=== PATIENT | female | born 1975 | race African-American/Black ===

== ENCOUNTER 2023-12-05 10:07 | Inpatient (IN) | payer OTHER ==
[2023-12-05 10:34] VITALS: BMI 22.5
[2023-12-05] MEDS ORDERED: P-EPHED 60MG/TRIPROLIDI 2.5MG TABLET PO PRN (11:28)
[2023-12-05] MEDS ORDERED: IBUPROFEN 400 MG TABLET (FP) PO PRN (11:28)
[2023-12-05] MEDS ORDERED: MAGNESIUM HYDROX 2400MG/30ML ORAL SUSPENSION 30 ML CUP PO PRN (11:28)
[2023-12-05] MEDS ORDERED: BENZOCAINE/MENTHOL (CHLORASEPTIC ) LOZENGE MM PRN (11:28)
[2023-12-05] MEDS ORDERED: NICOTINE POLACRILEX 2 MG LOZENGE BC PRN (11:28)
[2023-12-05] MEDS ORDERED: DICYCLOMINE HCL 10 MG CAPSULE PO PRN (11:28)
[2023-12-05] MEDS ORDERED: BISMUTH SUBSALICYLATE 262 MG/15 ML BTL PO PRN (11:28)
[2023-12-05] MEDS ORDERED: IBUPROFEN 600 MG TABLET (FP) PO PRN (11:28)
[2023-12-05] MEDS ORDERED: guaiFENesin 600 MG TABLET.ER (FP) PO PRN (11:28)
[2023-12-05] MEDS ORDERED: BENZONATATE 200 MG CAPSULE PO PRN (11:28)
[2023-12-05] MEDS ORDERED: NALOXONE HCL 0.4 MG/ML VIAL IM PRN (11:28)
[2023-12-05] MEDS ORDERED: NALOXONE HCL (KLOXXADO) 8 MG SPRAY NS PRN (11:28)
[2023-12-05] MEDS ORDERED: ONDANSETRON *ODT* 4 MG TABLET SL PRN (11:28)
[2023-12-05] MEDS ORDERED: hydrOXYzine PAMOATE 25 MG CAPSULE (FP) PO PRN (11:28)
[2023-12-05] MEDS ORDERED: POLYETHYLENE GLYCOL (HEALTHYLAX) 3350 17 GM PACKET PO PRN (11:28)
[2023-12-05] MEDS ORDERED: LOPERAMIDE HCL 2 MG CAPSULE PO PRN (11:28)
[2023-12-05] MEDS ORDERED: ACETAMINOPHEN 325 MG TABLET (FP) PO PRN (11:28)
[2023-12-05] MEDS ORDERED: MAG HYDROX/AL HYDROX/SIMETH 30 ML UNIT-DOSE CUP PO PRN (11:28)
[2023-12-05] MEDS ORDERED: ALBUTEROL SO4 HFA INHALER IH PRN (11:30)
[2023-12-05] MEDS ORDERED: levETIRAcetam 500 MG TABLET (FP) PO ONE (12:07)
[2023-12-05] MEDS: levETIRAcetam 500 MG TABLET (FP) PO SCH ×2 (12:12→22:31)
[2023-12-05] MEDS: THIAMINE HCL 100 MG TABLET (FP) PO SCH (22:32)
[2023-12-05] MEDS: MELATONIN 5 MG TABLETS PO SCH (22:32)
[2023-12-06] MEDS ORDERED: methaDONE HCL 10 MG TABLET (FOR DETOX USE ONLY) PO ONE ×2 (05:51→10:00)
[2023-12-06] MEDS ORDERED: TRIMETHOBENZAMIDE HCL 200MG/2ML INJ IM ONE ×2 (08:00→19:10)
[2023-12-06] MEDS: levETIRAcetam 500 MG TABLET (FP) PO SCH ×2 (09:45→22:51)
[2023-12-06] MEDS: cloNIDine HCL 0.1 MG TABLET PO PRN ×4 (09:45→22:54)
[2023-12-06] MEDS: PRENATAL VITAMINS W/ FOLIC ACID TABLET (FP) PO SCH (09:45)
[2023-12-06 11:16] LABS: POTASSIUM 4.1 mmol/L (3.5-5.1)
[2023-12-06 11:35] LABS: CALCIUM 8.8 mg/dL (8.5-10.1)
[2023-12-06 11:36] LABS: BLOOD UREA NITROGEN 10.8 mg/dL (7-18); CREATININE 0.6 mg/dL (0.55-1.3)
[2023-12-06 11:38] LABS: BILIRUBIN,TOTAL 0.3 mg/dL (0.2-1); TOT PROT 7.9 g/dl (6.4-8.2)
[2023-12-06] MEDS ORDERED: ONDANSETRON *ODT* 4 MG TABLET SL PRN (12:27)
[2023-12-06 12:53] LABS: HEMATOCRIT 38.4 % (32.4-45.2); HEMOGLOBIN 12.3 GM/dL (10.7-15.3); MCH 22.9 pg (25.7-33.7); MCHC 32.1 g/dl (32.0-36.0); MEAN CELL VOLUME 71.2 fl (80-96); MEAN PLT VOLUME 8.2 fl (7.5-11.1); PLATELET COUNT 278 10^3/uL (134-434); RBC 5.39 M/mm3 (3.60-5.2); RDW 19.7 % (11.6-15.6); WHITE BLOOD COUNT 5.3 K/mm3 (4.0-10.0)
[2023-12-06] MEDS: METHOCARBAMOL 500 MG TABLET PO PRN (19:05)
[2023-12-06] MEDS: THIAMINE HCL 100 MG TABLET (FP) PO SCH (22:50)
[2023-12-06] MEDS: MELATONIN 5 MG TABLETS PO SCH (22:50)
[2023-12-06] MEDS ORDERED: cloNIDine HCL 0.1 MG TABLET PO ONE (23:51)
[2023-12-07] MEDS ORDERED: ONDANSETRON *ODT* 4 MG TABLET SL PRN (00:02)
[2023-12-07] MEDS: cloNIDine HCL 0.1 MG TABLET PO PRN (05:59)
[2023-12-07] MEDS: PRENATAL VITAMINS W/ FOLIC ACID TABLET (FP) PO SCH (10:46)
[2023-12-07] MEDS: levETIRAcetam 500 MG TABLET (FP) PO SCH ×2 (10:46→21:14)
[2023-12-07] MEDS: METHOCARBAMOL 500 MG TABLET PO PRN (11:10)
[2023-12-07] MEDS ORDERED: QUEtiapine FUMARATE 200 MG TABLET PO SCH ×2 (12:45→22:00)
[2023-12-07] MEDS ORDERED: QUEtiapine FUMARATE 200 MG TABLET PO ONE (13:00)
[2023-12-07 15:10] VITALS: BP 70/44; PULSE 101; RESP 16; TEMP 98.1
[2023-12-07] MEDS: THIAMINE HCL 100 MG TABLET (FP) PO SCH (21:14)
[2023-12-08] MEDS ORDERED: methaDONE HCL 10 MG TABLET (FOR DETOX USE ONLY) PO ONE (10:00)
[2023-12-10] MEDS ORDERED: methaDONE HCL 10 MG TABLET (FOR DETOX USE ONLY) PO ONE (10:00)
== END 2023-12-07 22:00 | disposition short-term general hospital (02) | DRG 773 ==
LOC: YASAS 10:07 → Y3N 11:30
PROVIDERS: ADMIT Allergy & Immunology; ATTEND Allergy & Immunology
PROC: HZ2ZZZZ Detoxification Services for Substance Abuse Treatment (ICD-10-PCS; principal; 2023-12-05)
DX: F11.23 Opioid dependence with withdrawal (principal); F14.20 Cocaine dependence, uncomplicated; F17.210 Nicotine dependence, cigarettes, uncomplicated; F25.1 Schizoaffective disorder, depressive type; F19.280 Other psychoactive substance dependence with psychoactive substance-induced anxiety disorder; F19.282 Other psychoactive substance dependence with psychoactive substance-induced sleep disorder; I10 Essential (primary) hypertension; I95.9 Hypotension, unspecified; G40.909 Epilepsy, unspecified, not intractable, without status epilepticus; Z85.830 Personal history of malignant neoplasm of bone; Z89.022 Acquired absence of left finger(s); Z89.021 Acquired absence of right finger(s); Z56.0 Unemployment, unspecified; Z88.0 Allergy status to penicillin
CPT/HCPCS: 36415; 80053; 81025; 85027; 86780; 87635; 87811; 93005; 93010; Q0162

== ENCOUNTER 2023-12-07 14:57 | Inpatient (IN) | payer OTHER ==
[2023-12-07 15:48] VITALS: BMI 22.4
[2023-12-07] MEDS ORDERED: SODIUM CHLORIDE 0.9% 500 ML INFUS.BAG IV ONE ×3 (15:56→18:16)
[2023-12-07 16:11] LABS: EOS % 2.7 % (0-4.5); HEMATOCRIT 36.1 % (32.4-45.2); HEMOGLOBIN 11.8 GM/dL (10.7-15.3); MCH 23.2 pg (25.7-33.7); MCHC 32.7 g/dl (32.0-36.0); MEAN CELL VOLUME 70.9 fl (80-96); MEAN PLT VOLUME 7.4 fl (7.5-11.1); MONO % 14.2 % (3.8-10.2); NEUT % 32.1 % (42.8-82.8); PLATELET COUNT 279 10^3/uL (134-434); RDW 19.3 % (11.6-15.6); WHITE BLOOD COUNT 4.2 K/mm3 (4.0-10.0)
[2023-12-07 16:12] LABS: VENOUS BASE EXCESS 0.5 mmol/L (-2-2); VENOUS O2 SATURATION 49.7 % (70-80); VENOUS PCO2 54.3 mmHg (38-52); VENOUS PH 7.324 (7.310-7.410)
[2023-12-07 16:19] LABS: INR 1.07 (0.83-1.09); PROTHROMBIN TIME (PATIENT) 12.4 SEC (9.7-13.0)
[2023-12-07 16:22] LABS: ACTIVATED PTT 29.6 SECONDS (25.2-36.5)
[2023-12-07 16:23] LABS: POTASSIUM 4.2 mmol/L (3.5-5.1)
[2023-12-07] MEDS ORDERED: NALOXONE HCL 0.4 MG/ML VIAL ONE (16:23)
[2023-12-07 16:25] LABS: BLOOD UREA NITROGEN 25.9 mg/dL (7-18); CALCIUM 8.8 mg/dL (8.5-10.1)
[2023-12-07 16:26] LABS: MAGNESIUM 2.4 mg/dL (1.8-2.4)
[2023-12-07] MEDS ORDERED: NALOXONE HCL 0.4 MG/ML VIAL IVPUSH ONE ×2 (16:27→20:13)
[2023-12-07 16:29] LABS: CREATININE 1.7 mg/dL (0.55-1.3); PHOSPHOROUS 6.4 mg/dL (2.5-4.9)
[2023-12-07 16:30] LABS: TOT PROT 7.7 g/dl (6.4-8.2)
[2023-12-07 16:31] LABS: BILIRUBIN,TOTAL 0.3 mg/dL (0.2-1)
[2023-12-07 17:12] LABS: LACTIC ACID 2.6 mmol/L (0.4-2.0)
[2023-12-07] MEDS ORDERED: LACTATED RINGERS SOLUTION 1,000 ML/1,000 ML INFUS.BAG IV SCH ×2 (22:00)
[2023-12-07] MEDS ORDERED: cloNIDine HCL 0.1 MG TABLET PO PRN (22:09)
[2023-12-07] MEDS: HEPARIN NA (PORCINE) 5,000 UNITS/ML 1ML VIAL SQ SCH (23:16)
[2023-12-07 23:19] LABS: URINE APPEARANCE CLEAR; URINE BILIRUBIN NEGATIVE (NEGATIVE); URINE COLOR YELLOW; URINE GLUCOSE (UA) NEGATIVE (NEGATIVE); URINE KETONE NEGATIVE (NEGATIVE); URINE LEUK ESTERASE NEGATIVE (NEGATIVE); URINE NITRITE NEGATIVE (NEGATIVE); URINE PROTEIN NEGATIVE (NEGATIVE); URINE UROBILINOGEN 0.2 mg/dL (0.2-1.0)
[2023-12-07 23:22] LABS: OPIATES, URI NEGATIVE (NEGATIVE); PHENCYCLIDINE,URINE NEGATIVE (NEGATIVE); URINE BENZODIAZEPINES NEGATIVE (NEGATIVE)
[2023-12-07 23:24] LABS: URINE BARBITURATES NEGATIVE (NEGATIVE)
[2023-12-07 23:33] LABS: COCAINE, UR POSITIVE (NEGATIVE); METHADONE, UR POSITIVE (NEGATIVE); URINE AMPHETAMINES NEGATIVE (NEGATIVE)
[2023-12-07] MEDS ORDERED: QUEtiapine FUMARATE 50 MG TABLET PO ONE ×2 (23:51)
[2023-12-07] MEDS ORDERED: QUEtiapine FUMARATE 100 MG TABLET (FP) PO ONE (23:51)
[2023-12-07] MEDS ORDERED: QUEtiapine FUMARATE 100 MG TABLET (FP) ONE (23:56)
[2023-12-08] MEDS ORDERED: ALBUTEROL SO4 HFA INHALER IH PRN (05:58)
[2023-12-08] MEDS: HEPARIN NA (PORCINE) 5,000 UNITS/ML 1ML VIAL SQ SCH ×2 (06:49→14:18)
[2023-12-08 09:51] VITALS: TEMP 98.6
[2023-12-08] MEDS ORDERED: QUEtiapine FUMARATE 200 MG TABLET PO SCH (10:00)
[2023-12-08] MEDS ORDERED: levETIRAcetam 500 MG TABLET (FP) PO SCH (10:00)
[2023-12-08] MEDS ORDERED: QUEtiapine FUMARATE 100 MG TABLET (FP) ONE (10:19)
[2023-12-08] MEDS ORDERED: cloNIDine HCL 0.1 MG TABLET PO PRN (10:25)
[2023-12-08] MEDS ORDERED: QUEtiapine FUMARATE 100 MG TABLET (FP) PO SCH ×2 (10:51→11:08)
[2023-12-08] MEDS ORDERED: methaDONE HCL 10 MG TABLET ONE (11:30)
[2023-12-08 13:26] VITALS: PULSE 93; RESP 16
[2023-12-08] MEDS ORDERED: SODIUM CHLORIDE 250 ML IV STA ×2 (13:33→13:59)
[2023-12-08] MEDS ORDERED: HEPARIN NA (PORCINE) 5,000 UNITS/ML 1ML VIAL ONE (14:14)
[2023-12-09] MEDS ORDERED: methaDONE HCL 10 MG TABLET (FOR DETOX USE ONLY) PO ONE (10:00)
[2023-12-09] MEDS ORDERED: methaDONE HCL 10 MG TABLET PO ONE (10:00)
[2023-12-11] MEDS ORDERED: methaDONE HCL 10 MG TABLET (FOR DETOX USE ONLY) PO ONE (10:00)
[2023-12-11] MEDS ORDERED: methaDONE HCL 10 MG TABLET PO ONE (10:00)
[2023-12-14 23:15] VITALS: BP 98/56
== END 2023-12-08 15:30 | disposition left against medical advice (07) | DRG 207 ==
LOC: JER 14:57 → JERBED 16:59 → OBSVTOIN 19:49
PROVIDERS: ADMIT Internal Medicine; ATTEND Internal Medicine
DX: I95.9 Hypotension, unspecified (principal); C41.9 Malignant neoplasm of bone and articular cartilage, unspecified; E87.20 Acidosis, unspecified; N17.9 Acute kidney failure, unspecified; R64 Cachexia; Z68.22 Body mass index [BMI] 22.0-22.9, adult; F11.90 Opioid use, unspecified, uncomplicated; E03.9 Hypothyroidism, unspecified; Z59.00 Homelessness unspecified
CPT/HCPCS: 0241U-QW; 36415; 70450-TC; 71045-TC-FY; 80053; 80177; 80307; 81003; 82550; 82553; 82803; 82962; 83605; 83735; 83880; 84100; 84436; 84443; 84484; 85025; 85610; 85730; 86850; 86900; 86901; 87040; 87086; 93005; 93010; 99285-25; G0378; J1644

== ENCOUNTER 2023-12-08 16:40 | Inpatient (IN) | payer OTHER ==
[2023-12-08 18:03] VITALS: BMI 21.6
[2023-12-08] MEDS ORDERED: ALBUTEROL SO4 HFA INHALER IH PRN (23:22)
[2023-12-08] MEDS ORDERED: BENZOCAINE/MENTHOL (CHLORASEPTIC ) LOZENGE MM PRN (23:23)
[2023-12-08] MEDS ORDERED: NICOTINE POLACRILEX 2 MG LOZENGE BC PRN (23:23)
[2023-12-08] MEDS ORDERED: DICYCLOMINE HCL 10 MG CAPSULE PO PRN (23:23)
[2023-12-08] MEDS ORDERED: ACETAMINOPHEN 325 MG TABLET (FP) PO PRN (23:23)
[2023-12-08] MEDS ORDERED: BISMUTH SUBSALICYLATE 524 MG/30 ML PO PRN (23:23)
[2023-12-08] MEDS ORDERED: BENZONATATE 200 MG CAPSULE PO PRN (23:23)
[2023-12-08] MEDS ORDERED: POLYETHYLENE GLYCOL (HEALTHYLAX) 3350 17 GM PACKET PO PRN (23:23)
[2023-12-08] MEDS ORDERED: P-EPHED 60MG/TRIPROLIDI 2.5MG TABLET PO PRN (23:23)
[2023-12-08] MEDS ORDERED: NALOXONE HCL 0.4 MG/ML VIAL IM PRN (23:23)
[2023-12-08] MEDS ORDERED: guaiFENesin 600 MG TABLET.ER (FP) PO PRN (23:23)
[2023-12-08] MEDS ORDERED: MAG HYDROX/AL HYDROX/SIMETH 30 ML UNIT-DOSE CUP PO PRN (23:23)
[2023-12-08] MEDS ORDERED: LOPERAMIDE HCL 2 MG CAPSULE PO PRN (23:23)
[2023-12-08] MEDS ORDERED: MAGNESIUM HYDROX 2400MG/30ML ORAL SUSPENSION 30 ML CUP PO PRN (23:23)
[2023-12-08] MEDS ORDERED: NALOXONE HCL (KLOXXADO) 8 MG SPRAY NS PRN (23:23)
[2023-12-09] MEDS ORDERED: levETIRAcetam 500 MG TABLET (FP) PO ONE (00:11)
[2023-12-09] MEDS: levETIRAcetam 500 MG TABLET (FP) PO SCH ×3 (00:14→22:41)
[2023-12-09] MEDS ORDERED: TRIMETHOBENZAMIDE HCL 200MG/2ML INJ IM PRN (08:53)
[2023-12-09] MEDS ORDERED: LOPERAMIDE HCL 2 MG CAPSULE PO ONE (09:00)
[2023-12-09] MEDS: QUEtiapine FUMARATE 200 MG TABLET PO SCH ×2 (09:17→22:41)
[2023-12-09] MEDS: PRENATAL VITAMINS W/ FOLIC ACID TABLET (FP) PO SCH (09:17)
[2023-12-09] MEDS: ONDANSETRON *ODT* 4 MG TABLET SL ONE ×2 (09:17→09:24)
[2023-12-09 11:49] LABS: POTASSIUM 4.5 mmol/L (3.5-5.1)
[2023-12-09 11:55] LABS: CALCIUM 8.2 mg/dL (8.5-10.1)
[2023-12-09 11:56] LABS: ALBUMIN 2.6 g/dl (3.4-5.0); BLOOD UREA NITROGEN 19.1 mg/dL (7-18); MAGNESIUM 1.9 mg/dL (1.8-2.4)
[2023-12-09 11:59] LABS: CREATININE 0.6 mg/dL (0.55-1.3); PHOSPHOROUS 3.9 mg/dL (2.5-4.9)
[2023-12-09] MEDS: FLUTICASONE/SALMETEROL (WIXELA) 100 MCG/50 MCG DISKUS IH SCH ×3 (13:24→23:19)
[2023-12-09] MEDS ORDERED: THIAMINE HCL 100 MG TABLET (FP) PO SCH (22:00)
[2023-12-09] MEDS ORDERED: MELATONIN 5 MG TABLETS PO SCH (22:00)
[2023-12-10 06:20] VITALS: TEMP 97.8
[2023-12-10 09:22] VITALS: BP 131/85; PULSE 89; RESP 18
[2023-12-10] MEDS: levETIRAcetam 500 MG TABLET (FP) PO SCH (10:14)
[2023-12-10] MEDS: PRENATAL VITAMINS W/ FOLIC ACID TABLET (FP) PO SCH (10:15)
[2023-12-10] MEDS: FLUTICASONE/SALMETEROL (WIXELA) 100 MCG/50 MCG DISKUS IH SCH (10:15)
[2023-12-10] MEDS: QUEtiapine FUMARATE 200 MG TABLET PO SCH (10:15)
== END 2023-12-10 11:52 | disposition home or self-care (01) | DRG 773 ==
LOC: YASAS 16:40 → Y6N 12-09 00:02
PROVIDERS: ADMIT Allergy & Immunology; ATTEND Surgery
PROC: HZ2ZZZZ Detoxification Services for Substance Abuse Treatment (ICD-10-PCS; principal; 2023-12-09)
DX: F11.20 Opioid dependence, uncomplicated (principal); F14.20 Cocaine dependence, uncomplicated; F25.8 Other schizoaffective disorders; F17.210 Nicotine dependence, cigarettes, uncomplicated; J43.0 Unilateral pulmonary emphysema [MacLeod's syndrome]; C41.9 Malignant neoplasm of bone and articular cartilage, unspecified; Z88.0 Allergy status to penicillin
CPT/HCPCS: 36415; 80069; 81025; 83735; Q0162